=== PATIENT | female | born 1985 | race Caucasian/White ===

== ENCOUNTER 2016-11-06 13:50 | Emergency (ER) | payer OTHER ==
[2016-11-06] MEDS ORDERED: CLINDAMYCIN HC300 MG PO (14:11)
[2016-11-06] MEDS ORDERED: ANAPROX DS550 MG PO (14:11)
== END 2016-11-06 14:21 | disposition home or self-care (01) ==
LOC: ED 13:50
DX: K08.89 Other specified disorders of teeth and supporting structures (principal)

== ENCOUNTER 2019-04-18 14:25 | Emergency (ER) | payer OTHER ==
[~2019-04-18] VITALS: Ht 162.5 cm; Wt 85.7 kg
[~2019-04-18 14:25] MED LIST: ANAPROX DS550 MG PO; CLINDAMYCIN HC300 MG PO
== END 2019-04-18 16:23 | disposition left against medical advice (07) ==
LOC: ED 14:25
DX: R07.81 Pleurodynia (principal); F17.200 Nicotine dependence, unspecified, uncomplicated; W18.2XXA Fall in (into) shower or empty bathtub, initial encounter; Y93.89 Activity, other specified; Y92.091 Bathroom in other non-institutional residence as the place of occurrence of the external cause; Y99.8 Other external cause status

== ENCOUNTER 2022-01-22 17:40 | Emergency (ER) | payer OTHER ==
[~2022-01-22] VITALS: Wt 73.5 kg
[2022-01-22] MEDS ORDERED: HYDROCODONE-AC1 EACH PO (21:40)
== END 2022-01-22 21:55 | disposition home or self-care (01) ==
LOC: ED 17:40
DX: S62.015A Nondisplaced fracture of distal pole of navicular [scaphoid] bone of left wrist, initial encounter for closed fracture (principal); W01.0XXA Fall on same level from slipping, tripping and stumbling without subsequent striking against object, initial encounter; Y93.02 Activity, running; Y92.89 Other specified places as the place of occurrence of the external cause; Y99.8 Other external cause status

== ENCOUNTER 2022-02-15 18:23 | Emergency (ER) | payer OTHER ==
[~2022-02-15] VITALS: Ht 160 cm; Wt 74.8 kg
[~2022-02-15 18:23] MED LIST changes: +HYDROCODONE-AC1 EACH PO
[2022-02-15] MEDS ORDERED: IBUPROFEN600 MG PO (20:24)
[2022-02-15] MEDS ORDERED: SEPTDS PO (20:24)
== END 2022-02-15 20:32 | disposition home or self-care (01) ==
LOC: ED 18:23
DX: S80.12XA Contusion of left lower leg, initial encounter (principal); L08.9 Local infection of the skin and subcutaneous tissue, unspecified; W01.0XXA Fall on same level from slipping, tripping and stumbling without subsequent striking against object, initial encounter; Y93.89 Activity, other specified; Y92.89 Other specified places as the place of occurrence of the external cause; Y99.8 Other external cause status